=== PATIENT | female | born 1985 | race Caucasian/White ===

== ENCOUNTER 2017-01-03 10:22 | Emergency (ER) | payer OTHER, MEDICAID ==
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
[2017-01-03] MEDS ORDERED: IBUPROFEN 600 MG TAB PO ONE (10:29)
[2017-01-03 10:31] VITALS: TEMP 98.2
[2017-01-03] MEDS ORDERED: ACETAMINOPHEN 325 MG TAB ONE (14:04)
[2017-01-03] MEDS ORDERED: ACETAMINOPHEN 325 MG TAB PO ONE (14:05)
[2017-01-03 14:09] VITALS: BP 113/64; PULSE 85; RESP 20; O2SAT 95
== END 2017-01-03 14:09 | disposition home or self-care (01) ==
LOC: EDUNIT#
DX: S19.9XXA Unspecified injury of neck, initial encounter (principal); V49.49XA Driver injured in collision with other motor vehicles in traffic accident, initial encounter; Y92.410 Unspecified street and highway as the place of occurrence of the external cause; Y99.8 Other external cause status; Y93.89 Activity, other specified

== ENCOUNTER 2017-01-04 12:53 | Emergency (ER) | payer OTHER, MEDICAID ==
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
[2017-01-04 13:18] VITALS: RESP 16; TEMP 97.5
[2017-01-04 13:21] LABS: % IMMATURE GRANULYOCYTES 0.4 % (0.0-1.1); ABSOLUTE IMMATURE GRANULOCYTES 0.06 10^3/uL (0.00-0.10); ADD DIFF? NO; ADD MORPH? NO; ADD SCAN? NO; ATYPICAL LYMPHOCYTE FLAG 0 (0-99); FRAGMENT RBC FLAG 0 (0-99); HEMATOCRIT 37.6 % (38.0-47.0); HEMOGLOBIN 12.9 g/dL (12.6-16.3); LEFT SHIFT FLG 0 (0-99); LIPEMIA HEMOLYSIS FLAG 90 (0-99); MEAN CELL HEMOGLOBIN CONCENTR. 34.3 g/dL (32.4-36.7); MEAN CELL VOLUME 90.4 fL (81.5-99.8); MEAN PLATELET VOLUME 10.2 fL (8.7-11.7); PLATELET CLUMPS FLAG 10 (0-99); PLATELET COUNT 298 10^3/uL (150-400); RED BLOOD CELL COUNT 4.16 10^6/uL (4.18-5.33); RED CELL DISTRIBUTION WIDTH 12.1 % (11.5-15.2)
[2017-01-04] MEDS ORDERED: D50W 25 GM/50 ML SYR IVP ONE (13:26)
--- NOTE | 2017-01-04 13:26 | CPEKG ---
Heart Rate: 76 RR Interval: 789 P-R Interval: 148 QRSD Interval: 74 QT Interval: 412 QTC Interval: 464 P Maple: 70 QRS Maple: 79 T Wave Maple: 51 EKG Severity - NORMAL ECG - EKG Impression: SINUS RHYTHM Electronically Signed By: Geremias Mendoza 04-Jan-2017 12:30:04
[2017-01-04 13:34] LABS: ANION GAP 20 mEq/L (8-16); CALCIUM 8.7 mg/dL (8.5-10.4); CARBON DIOXIDE 12 mEq/l (22-31); CHLORIDE 111 mEq/L (97-110); CREATININE 0.6 mg/dL (0.6-1.0); GLOMERULAR FILTRATION RATE > 60; GLUCOSE 50 mg/dL (70-100); POTASSIUM 3.6 mEq/L (3.5-5.2); SODIUM 143 mEq/L (134-144)
[2017-01-04] MEDS ORDERED: NS 1,000 ML IV ONE ×2 (13:53)
[2017-01-04] MEDS ORDERED: D10W 250 ML ONCE IV ONE (14:00)
[2017-01-04 14:18] LABS: ETHANOL SERUM 29 mg/dL (0-10); SALICYLATE < 1.0 mg/dL (2.0-20.0)
[2017-01-04 15:19] VITALS: BP 107/75; PULSE 100; O2SAT 98
== END 2017-01-04 15:18 | disposition home or self-care (01) ==
LOC: EDUNIT#
DX: R55 Syncope and collapse (principal); E86.0 Dehydration; F17.200 Nicotine dependence, unspecified, uncomplicated; E86.9 Volume depletion, unspecified
CPT/HCPCS: 82947-QW; 96374; G0480

== ENCOUNTER → 2017-06-06 | Outpatient (CLI) | payer MEDICAID | LOC: FIMAGING 14:24 | PROVIDERS: ATTEND Nurse Practitioner Women's Health | DX: R10.2 Pelvic and perineal pain (principal) ==

== ENCOUNTER → 2017-08-05 | Outpatient (CLI) | payer MEDICAID ==
[~2017-08-05] MED LIST: IOPAMIDOL (ISOVUE-300) 100 ML BTL ONE
== END ==
LOC: FIMAGING 14:35
PROVIDERS: ATTEND Internal Medicine Gastroenterology
DX: R10.33 Periumbilical pain (principal); K92.1 Melena
CPT/HCPCS: Q9967